=== PATIENT | male | born 1950 | race Two or more races ===

== ENCOUNTER 2017-03-26 16:20 | Inpatient (IN) | payer MEDICARE, MEDICAID ==
[~2017-03-26] VITALS: Ht 162.6 cm; Wt 74.9 kg
[2017-03-26] MEDS ORDERED: SODIUM CHLORIDE 0.9% 500 ML IV ONE (16:48)
[2017-03-26] MEDS ORDERED: ONDANSETRON HCL 4MG/2ML VIAL IV STA (16:48)
[2017-03-26 17:14] LABS: HEMATOCRIT. 34.6 % (42.0-52.0); HEMOGLOBIN. 11.6 g/dL (14.0-18.0); MEAN CORPUSCULAR VOLUME 98.7 fL (80.0-94.0); MEAN PLATELET VOLUME 8.8 fl (7.4-10.4); PLATELET 236 x1000/uL (130-400); RED BLOOD CELL COUNT 3.51 mill/uL (4.7-6.1); RED CELL DISTRIBUTION WIDTH 17.2 % (11.6-14.6)
[2017-03-26 17:21] LABS: CHLORIDE 97 mEq/L (98-107); INR 1.5; PARTIAL THROMBOPLASTIN TIME 34.8 sec (23.4-31.0); PROTHROMBIN TIME 15.5 sec (9.4-11.6)
[2017-03-26 17:28] LABS: CARBON DIOXIDE 25 mEq/L (21-32); CREATINE KINASE 57 IU/L (39-308); ETHANOL BLOOD < 10 mg/dL
[2017-03-26 17:31] LABS: TROPONIN I 0.19 ng/mL (0.00-0.04)
[2017-03-26 18:20] LABS: PLATELET ESTIMATE NORMAL
[2017-03-26] MEDS ORDERED: METRONIDAZOLE 500 MG PREMIX 100 ML IV ONE (18:45)
[2017-03-26] MEDS ORDERED: PIPERACILLIN/TAZ 3.375G PREMIX 50 ML IV ONE (18:45)
[2017-03-26 22:30] VITALS: BP 123/40
[2017-03-26] MEDS ORDERED: DEXTROSE 50% WATER 50ML SYRINGE IV PRN (23:30)
[2017-03-26] MEDS ORDERED: IPRATROPIUM/ALBUTEROL 0.5-3(2.5)MG/3ML NEB INH PRN (23:30)
[2017-03-26] MEDS ORDERED: NA PHOS,M-B/NA PHOS,DI-BA ENEMA 118ML PR PRN (23:30)
[2017-03-26] MEDS ORDERED: MAGNESIUM/ALUMINUM HYDROXIDE/SIMETHICONE 30ML UDC PO PRN (23:30)
[2017-03-26] MEDS ORDERED: HYDROCODONE/ACETAMINOPHEN 5/325MG TABLET PO PRN (23:30)
[2017-03-26] MEDS ORDERED: ACETAMINOPHEN 325MG TABLET PO PRN (23:30)
[2017-03-26] MEDS ORDERED: DOCUSATE SODIUM 100MG CAPSULE PO PRN (23:30)
[2017-03-26] MEDS ORDERED: ACETAMINOPHEN 650MG SUPP PR PRN (23:30)
[2017-03-26] MEDS ORDERED: GUAIFENESIN 200MG/10ML SUGAR FREE UDC PO PRN (23:30)
[2017-03-26] MEDS ORDERED: DIPHENHYDRAMINE 50MG/ML VIAL IV PRN (23:30)
[2017-03-26] MEDS ORDERED: ENOXAPARIN 40MG/0.4ML SYR SUBCUT SCH (23:30)
[2017-03-26] MEDS ORDERED: ACETAMINOPHEN 650MG/20.3ML UDC GT PRN (23:30)
[2017-03-27] VITALS (45 sets, daily range): BP systolic 68–159; BP diastolic 21–87
[2017-03-27] MEDS: CEFTRIAXONE 1 G PREMIX 50 ML IV SCH (01:34)
[2017-03-27] MEDS ORDERED: VANCOMYCIN 750 MG PREMIX 150 ML IV SCH (02:00)
[2017-03-27] MEDS: SODIUM CHLORIDE 0.9% INJ 3ML FLUSH IVF SCH ×2 (05:01→21:37)
[2017-03-27 07:07] LABS: HEMATOCRIT. 28.9 % (42.0-52.0); HEMOGLOBIN. 9.7 g/dL (14.0-18.0); MEAN CORPUSCULAR HEMOGLOBIN 33.3 pg (28.0-32.0); MEAN CORPUSCULAR VOLUME 99.5 fL (80.0-94.0); MEAN PLATELET VOLUME 8.6 fl (7.4-10.4); PLATELET 182 x1000/uL (130-400); RED BLOOD CELL COUNT 2.91 mill/uL (4.7-6.1)
[2017-03-27 07:46] LABS: CHLORIDE 102 mEq/L (98-107)
[2017-03-27] MEDS: INSULIN LISPRO 100 UNITS/ML SUBCUT SCH ×4 (08:00→21:36)
[2017-03-27] MEDS: BLOOD SUGAR DIAGNOSTIC STRIP TEST SCH ×4 (08:00→20:51)
[2017-03-27] MEDS ORDERED: GLIP10TA10 PO (08:12)
[2017-03-27] MEDS ORDERED: CINA30 PO (08:12)
[2017-03-27] MEDS ORDERED: LEVO500T89 PO (08:12)
[2017-03-27] MEDS ORDERED: LACT10SO6 MT (08:12)
[2017-03-27] MEDS ORDERED: LEVO25TA7 PO (08:12)
[2017-03-27] MEDS ORDERED: ASPI-1159 PO (08:12)
[2017-03-27] MEDS ORDERED: CLOP75TA33 PO (08:12)
[2017-03-27 08:28] LABS: CARBON DIOXIDE 19 mEq/L (21-32); HDL CHOLESTEROL 7 mg/dL (40-59); LDL CHOLESTEROL 52 mg/dL (5-100)
[2017-03-27] MEDS ORDERED: SODIUM CHLORIDE 0.9% 1000ML BAG (SEPSIS BOLUS) IV ONE (08:30)
[2017-03-27] MEDS: ENOXAPARIN 30MG/0.3ML SYR SUBCUT SCH (08:33)
[2017-03-27] MEDS ORDERED: ALBUMIN HUMAN 25GM/100ML (25%) IV NR (09:30)
[2017-03-27 09:31] LABS: T4 FREE 0.92 ng/dL (0.76-1.46)
[2017-03-27] MEDS ORDERED: SODIUM CHLORIDE 0.9% 100 ML IV ONE (09:32)
[2017-03-27] MEDS ORDERED: VANCOMYCIN 750 MG PREMIX 150 ML IV NR (10:00)
[2017-03-27 10:31] LABS: HEPATITIS B SURFACE ANTIGEN NEGATIVE
[2017-03-27 10:59] LABS: HEPATITIS B CORE AB IGM NEGATIVE
[2017-03-27 11:00] LABS: HEPATITIS A AB IGM NEGATIVE (NEGATIVE)
[2017-03-27] MEDS: METRONIDAZOLE 500 MG PREMIX 100 ML IV SCH ×2 (12:16→17:41)
[2017-03-27] MEDS: PHENYLEPHRINE 10 MG in DEXT 5% WATER 249 ML IV PRN ×2 (15:39→16:55)
[2017-03-27 15:58] LABS: D-DIMER 3.3 mg/L FEU (<0.50); INR 1.6; PROTHROMBIN TIME 16.7 sec (9.4-11.6)
[2017-03-27 16:11] LABS: CREATINE KINASE MB FRACTION 1.5 ng/mL (0.5-3.6); TROPONIN I 0.22 ng/mL (0.00-0.04)
[2017-03-27] MEDS ORDERED: EPOETIN ALFA 4000UNITS/ML VIAL SUBCUT SCH (21:00)
[2017-03-27] MEDS: EPOETIN ALFA 10000UNITS/ML VIAL SUBCUT SCH (21:36)
[2017-03-27 23:56] LABS: TROPONIN I 0.26 ng/mL (0.00-0.04)
[2017-03-27 23:57] LABS: CREATINE KINASE MB FRACTION 1.7 ng/mL (0.5-3.6)
[2017-03-28] VITALS (118 sets, daily range): BP systolic 55–167; BP diastolic 18–115
[2017-03-28] MEDS: CEFTRIAXONE 1 G PREMIX 50 ML IV SCH (00:48)
[2017-03-28] MEDS: PHENYLEPHRINE 10 MG in DEXT 5% WATER 249 ML IV PRN ×3 (02:00→14:50)
[2017-03-28] MEDS: METRONIDAZOLE 500 MG PREMIX 100 ML IV SCH ×3 (02:00→17:16)
[2017-03-28] MEDS: BLOOD SUGAR DIAGNOSTIC STRIP TEST SCH ×4 (06:00→20:59)
[2017-03-28] MEDS: SODIUM CHLORIDE 0.9% INJ 3ML FLUSH IVF SCH ×3 (06:01→20:59)
[2017-03-28] MEDS: INSULIN LISPRO 100 UNITS/ML SUBCUT SCH ×4 (06:01→20:58)
[2017-03-28] MEDS: ONDANSETRON HCL 4MG/2ML VIAL IV PRN (08:48)
[2017-03-28] MEDS: FOLIC ACID/VITAMIN B COMP W-C TABLET PO SCH (08:48)
[2017-03-28] MEDS: ENOXAPARIN 30MG/0.3ML SYR SUBCUT SCH (08:49)
[2017-03-28 10:35] LABS: HEMATOCRIT. 29.2 % (42.0-52.0); HEMOGLOBIN. 9.8 g/dL (14.0-18.0); MEAN CORPUSCULAR VOLUME 98.5 fL (80.0-94.0); MEAN PLATELET VOLUME 8.2 fl (7.4-10.4); PLATELET 183 x1000/uL (130-400); RED BLOOD CELL COUNT 2.96 mill/uL (4.7-6.1); RED CELL DISTRIBUTION WIDTH 17.7 % (11.6-14.6)
[2017-03-28 10:56] LABS: AMMONIA < 10 uMol/L (<32)
[2017-03-28 11:00] LABS: CARBON DIOXIDE 20 mEq/L (21-32); CHLORIDE 100 mEq/L (98-107); CREATINE KINASE 25 IU/L (39-308); CREATINE KINASE MB FRACTION 1.9 ng/mL (0.5-3.6); PHOSPHORUS 7.6 mg/dL (2.5-4.9); TROPONIN I 0.26 ng/mL (0.00-0.04)
[2017-03-28 11:01] LABS: PLATELET ESTIMATE NORMAL
[2017-03-28 13:07] LABS: PLATELET ESTIMATE NORMAL
[2017-03-28] MEDS ORDERED: PHENYLEPHRINE 20 MG in DEXT 5% WATER 498 ML IV PRN (15:45)
[2017-03-28] MEDS: PHENYLEPHRINE 20 MG in DEXT 5% WATER 498 ML IV PRN (17:16)
[2017-03-29] VITALS (98 sets, daily range): BP systolic 32–151; BP diastolic 14–113
[2017-03-29] MEDS: CEFTRIAXONE 1 G PREMIX 50 ML IV SCH (00:05)
[2017-03-29] MEDS: PHENYLEPHRINE 20 MG in DEXT 5% WATER 498 ML IV PRN ×3 (00:05→22:27)
[2017-03-29] MEDS: METRONIDAZOLE 500 MG PREMIX 100 ML IV SCH ×3 (01:39→17:49)
[2017-03-29 05:45] LABS: BASOPHILS % 0.4 % (0.0-2.0); EOSINOPHILS % 1.4 % (0.0-5.0); LYMPHOCYTES % 7.5 % (20.0-50.0); MEAN CORPUSCULAR HEMOGLOBIN 33.2 pg (28.0-32.0); MEAN PLATELET VOLUME 8.4 fl (7.4-10.4); MONOCYTES % 9.6 % (2.0-8.0); NEUTROPHILS % 81.1 % (40.0-76.0); PLATELET 166 x1000/uL (130-400); RED CELL DISTRIBUTION WIDTH 18.3 % (11.6-14.6)
[2017-03-29] MEDS: SODIUM CHLORIDE 0.9% INJ 3ML FLUSH IVF SCH ×3 (06:05→21:15)
[2017-03-29 06:15] LABS: CARBON DIOXIDE 20 mEq/L (21-32); CHLORIDE 98 mEq/L (98-107)
[2017-03-29] MEDS: INSULIN LISPRO 100 UNITS/ML SUBCUT SCH ×4 (06:41→21:18)
[2017-03-29] MEDS: BLOOD SUGAR DIAGNOSTIC STRIP TEST SCH ×4 (06:41→21:15)
[2017-03-29] MEDS: FOLIC ACID/VITAMIN B COMP W-C TABLET PO SCH (08:11)
[2017-03-29] MEDS: ENOXAPARIN 30MG/0.3ML SYR SUBCUT SCH (08:11)
[2017-03-30] VITALS (87 sets, daily range): BP systolic 45–149; BP diastolic 17–74
[2017-03-30] MEDS: CEFTRIAXONE 1 G PREMIX 50 ML IV SCH (00:36)
[2017-03-30] MEDS ORDERED: PHENYLEPHRINE 40 MG in DEXT 5% WATER 500 ML IV PRN (01:00)
[2017-03-30] MEDS: METRONIDAZOLE 500 MG PREMIX 100 ML IV SCH ×3 (02:36→18:13)
[2017-03-30 05:17] LABS: BASOPHILS % 0.3 % (0.0-2.0); EOSINOPHILS % 3.7 % (0.0-5.0); HEMATOCRIT. 28.5 % (42.0-52.0); HEMOGLOBIN. 9.6 g/dL (14.0-18.0); LYMPHOCYTES % 9.1 % (20.0-50.0); MEAN CORPUSCULAR HEMOGLOBIN 33.2 pg (28.0-32.0); MEAN CORPUSCULAR VOLUME 98.8 fL (80.0-94.0); MEAN PLATELET VOLUME 8.4 fl (7.4-10.4); MONOCYTES % 10.5 % (2.0-8.0); NEUTROPHILS % 76.4 % (40.0-76.0); PLATELET 184 x1000/uL (130-400); RED BLOOD CELL COUNT 2.89 mill/uL (4.7-6.1); RED CELL DISTRIBUTION WIDTH 18.1 % (11.6-14.6)
[2017-03-30 05:34] LABS: INR 1.7; PARTIAL THROMBOPLASTIN TIME 54.2 sec (23.4-31.0); PROTHROMBIN TIME 17.5 sec (9.4-11.6)
[2017-03-30] MEDS: SODIUM CHLORIDE 0.9% INJ 3ML FLUSH IVF SCH ×3 (06:21→21:03)
[2017-03-30] MEDS: BLOOD SUGAR DIAGNOSTIC STRIP TEST SCH ×4 (06:30→20:47)
[2017-03-30] MEDS: INSULIN LISPRO 100 UNITS/ML SUBCUT SCH ×4 (06:35→21:03)
[2017-03-30] MEDS: ENOXAPARIN 30MG/0.3ML SYR SUBCUT SCH (09:00)
[2017-03-30] MEDS ORDERED: SODIUM BICARBONATE 4% (2.4MEQ) 5ML VIAL IV ONE (09:13)
[2017-03-30] MEDS: FOLIC ACID/VITAMIN B COMP W-C TABLET PO SCH (10:08)
[2017-03-30 11:14] LABS: AMMONIA < 10 uMol/L (<32)
[2017-03-30] MEDS: VANCOMYCIN 1 G PREMIX 200 ML IV SCH ×2 (12:00→16:34)
[2017-03-30] MEDS ORDERED: MIDODRINE HCL 2.5MG TABLET PO SCH (20:00)
[2017-03-30] MEDS: EPOETIN ALFA 10000UNITS/ML VIAL SUBCUT SCH (20:48)
[2017-03-30] MEDS: MIDODRINE HCL 2.5MG TABLET PO SCH (21:54)
[2017-03-30] MEDS: PHENYLEPHRINE 40 MG in DEXT 5% WATER 500 ML IV PRN (21:55)
[2017-03-31] VITALS (105 sets, daily range): BP systolic 54–145; BP diastolic 19–100
[2017-03-31] MEDS: METRONIDAZOLE 500 MG PREMIX 100 ML IV SCH ×3 (01:24→17:33)
[2017-03-31] MEDS: CEFTRIAXONE 1 G PREMIX 50 ML IV SCH (01:24)
[2017-03-31 05:49] LABS: HEMATOCRIT. 28.7 % (42.0-52.0); HEMOGLOBIN. 9.6 g/dL (14.0-18.0); MEAN CORPUSCULAR HEMOGLOBIN 33.3 pg (28.0-32.0); MEAN CORPUSCULAR VOLUME 99.3 fL (80.0-94.0); MEAN PLATELET VOLUME 8.2 fl (7.4-10.4); PLATELET 187 x1000/uL (130-400); RED BLOOD CELL COUNT 2.89 mill/uL (4.7-6.1); RED CELL DISTRIBUTION WIDTH 18.9 % (11.6-14.6)
[2017-03-31] MEDS: SODIUM CHLORIDE 0.9% INJ 3ML FLUSH IVF SCH ×3 (06:12→21:02)
[2017-03-31] MEDS: BLOOD SUGAR DIAGNOSTIC STRIP TEST SCH ×4 (06:39→20:55)
[2017-03-31] MEDS: INSULIN LISPRO 100 UNITS/ML SUBCUT SCH ×4 (06:40→21:02)
[2017-03-31] MEDS: FOLIC ACID/VITAMIN B COMP W-C TABLET PO SCH (08:15)
[2017-03-31] MEDS: MIDODRINE HCL 2.5MG TABLET PO SCH ×3 (08:15→17:32)
[2017-03-31] MEDS: ENOXAPARIN 30MG/0.3ML SYR SUBCUT SCH (08:16)
[2017-03-31 16:56] LABS: PLATELET ESTIMATE NORMAL
[2017-04-01] VITALS (95 sets, daily range): BP systolic 67–134; BP diastolic 14–79
[2017-04-01] MEDS: CEFTRIAXONE 1 G PREMIX 50 ML IV SCH (00:37)
[2017-04-01] MEDS: METRONIDAZOLE 500 MG PREMIX 100 ML IV SCH ×3 (02:01→17:32)
[2017-04-01] MEDS: SODIUM CHLORIDE 0.9% INJ 3ML FLUSH IVF SCH ×3 (06:00→21:48)
[2017-04-01 06:01] LABS: HEMATOCRIT. 27.8 % (42.0-52.0); HEMOGLOBIN. 9.4 g/dL (14.0-18.0); MEAN CORPUSCULAR HEMOGLOBIN 33.6 pg (28.0-32.0); MEAN CORPUSCULAR VOLUME 99.7 fL (80.0-94.0); MEAN PLATELET VOLUME 8.3 fl (7.4-10.4); PLATELET 202 x1000/uL (130-400); RED BLOOD CELL COUNT 2.78 mill/uL (4.7-6.1); RED CELL DISTRIBUTION WIDTH 18.5 % (11.6-14.6)
[2017-04-01] MEDS: BLOOD SUGAR DIAGNOSTIC STRIP TEST SCH ×4 (06:09→21:33)
[2017-04-01 07:08] LABS: AMMONIA 43 uMol/L (<32)
[2017-04-01 07:13] LABS: CARBON DIOXIDE 23 mEq/L (21-32); CHLORIDE 102 mEq/L (98-107)
[2017-04-01] MEDS ORDERED: MIDODRINE HCL 2.5MG TABLET PO SCH ×2 (09:00→13:00)
[2017-04-01] MEDS: ENOXAPARIN 30MG/0.3ML SYR SUBCUT SCH (09:37)
[2017-04-01] MEDS: FOLIC ACID/VITAMIN B COMP W-C TABLET PO SCH (09:48)
[2017-04-01] MEDS: INSULIN LISPRO 100 UNITS/ML SUBCUT SCH ×4 (09:50→21:47)
[2017-04-01] MEDS: MIDODRINE HCL 5MG TABLET PO SCH ×2 (12:43→18:12)
[2017-04-01] MEDS: PHENYLEPHRINE 40 MG in DEXT 5% WATER 500 ML IV PRN (13:37)
[2017-04-01 13:51] LABS: NUCLEATED RED BLOOD CELLS 3 /100 WBC; PLATELET ESTIMATE NORMAL
[2017-04-01] MEDS ORDERED: EPOETIN ALFA 4000UNITS/ML VIAL SUBCUT SCH (21:00)
[2017-04-02] VITALS (98 sets, daily range): BP systolic 48–142; BP diastolic 19–86
[2017-04-02] MEDS: CEFTRIAXONE 1 G PREMIX 50 ML IV SCH (01:52)
[2017-04-02] MEDS: PHENYLEPHRINE 40 MG in DEXT 5% WATER 500 ML IV PRN (01:59)
[2017-04-02] MEDS: METRONIDAZOLE 500 MG PREMIX 100 ML IV SCH ×3 (02:46→17:31)
[2017-04-02] MEDS: ONDANSETRON HCL 4MG/2ML VIAL IV PRN (04:46)
[2017-04-02 05:33] LABS: BASOPHILS % 0.6 % (0.0-2.0); EOSINOPHILS % 1.2 % (0.0-5.0); HEMATOCRIT. 27.6 % (42.0-52.0); LYMPHOCYTES % 9.2 % (20.0-50.0); MEAN CORPUSCULAR HEMOGLOBIN 32.8 pg (28.0-32.0); MEAN CORPUSCULAR VOLUME 100.4 fL (80.0-94.0); MONOCYTES % 10.2 % (2.0-8.0); NEUTROPHILS % 78.8 % (40.0-76.0); RED BLOOD CELL COUNT 2.75 mill/uL (4.7-6.1)
[2017-04-02 05:45] LABS: AMMONIA < 25 uMol/L (<32)
[2017-04-02 05:49] LABS: PHOSPHORUS 4.8 mg/dL (2.5-4.9)
[2017-04-02] MEDS: SODIUM CHLORIDE 0.9% INJ 3ML FLUSH IVF SCH ×2 (07:03→21:56)
[2017-04-02] MEDS: BLOOD SUGAR DIAGNOSTIC STRIP TEST SCH ×4 (07:18→21:45)
[2017-04-02] MEDS: FOLIC ACID/VITAMIN B COMP W-C TABLET PO SCH (08:13)
[2017-04-02] MEDS: INSULIN LISPRO 100 UNITS/ML SUBCUT SCH ×4 (08:14→21:55)
[2017-04-02] MEDS: MIDODRINE HCL 5MG TABLET PO SCH ×3 (08:43→17:38)
[2017-04-02] MEDS: ENOXAPARIN 30MG/0.3ML SYR SUBCUT SCH (08:44)
[2017-04-02 09:01] LABS: MEAN PLATELET VOLUME 8.8 fl (7.4-10.4); PLATELET 189 x1000/uL (130-400)
[2017-04-03] VITALS (98 sets, daily range): BP systolic 63–128; BP diastolic 18–99
[2017-04-03] MEDS: CEFTRIAXONE 1 G PREMIX 50 ML IV SCH (01:40)
[2017-04-03] MEDS: METRONIDAZOLE 500 MG PREMIX 100 ML IV SCH ×3 (02:14→18:15)
[2017-04-03 06:08] LABS: HEMATOCRIT. 28.7 % (42.0-52.0); HEMOGLOBIN. 9.3 g/dL (14.0-18.0); MEAN CORPUSCULAR HEMOGLOBIN 32.6 pg (28.0-32.0); MEAN CORPUSCULAR VOLUME 100.6 fL (80.0-94.0); PLATELET 157 x1000/uL (130-400); RED BLOOD CELL COUNT 2.86 mill/uL (4.7-6.1); RED CELL DISTRIBUTION WIDTH 19.1 % (11.6-14.6)
[2017-04-03] MEDS: BLOOD SUGAR DIAGNOSTIC STRIP TEST SCH ×4 (06:43→21:34)
[2017-04-03] MEDS: SODIUM CHLORIDE 0.9% INJ 3ML FLUSH IVF SCH ×3 (06:44→21:39)
[2017-04-03] MEDS: INSULIN LISPRO 100 UNITS/ML SUBCUT SCH ×4 (07:09→21:38)
[2017-04-03 08:14] LABS: AMMONIA 71 uMol/L (<32)
[2017-04-03] MEDS: FOLIC ACID/VITAMIN B COMP W-C TABLET PO SCH (08:18)
[2017-04-03] MEDS: ENOXAPARIN 30MG/0.3ML SYR SUBCUT SCH (08:18)
[2017-04-03] MEDS: MIDODRINE HCL 5MG TABLET PO SCH ×3 (08:19→16:04)
[2017-04-03 09:32] LABS: PLATELET ESTIMATE NORMAL
[2017-04-03] MEDS ORDERED: VANCOMYCIN 1 G PREMIX 200 ML IV SCH (17:00)
[2017-04-04] VITALS (48 sets, daily range): BP systolic 55–118; BP diastolic 17–96
[2017-04-04 05:04] LABS: HEMATOCRIT 29.4 % (42.0-52.0); HEMOGLOBIN 9.5 g/dL (14.0-18.0); MEAN CORPUSCULAR HEMOGLOBIN 33.1 pg (28.0-32.0); MEAN CORPUSCULAR VOLUME 102.3 fL (80.0-94.0); PLATELET 193 x1000/uL (130-400); RED BLOOD CELL COUNT 2.87 mill/uL (4.7-6.1)
[2017-04-04] MEDS: SODIUM CHLORIDE 0.9% INJ 3ML FLUSH IVF SCH ×3 (06:25→22:09)
[2017-04-04] MEDS: BLOOD SUGAR DIAGNOSTIC STRIP TEST SCH ×4 (06:25→21:00)
[2017-04-04] MEDS: INSULIN LISPRO 100 UNITS/ML SUBCUT SCH ×4 (06:27→21:18)
[2017-04-04 07:26] LABS: PHOSPHORUS 5.3 mg/dL (2.5-4.9)
[2017-04-04 07:37] LABS: AMMONIA 35 uMol/L (<32)
[2017-04-04] MEDS: FOLIC ACID/VITAMIN B COMP W-C TABLET PO SCH (08:20)
[2017-04-04] MEDS: MIDODRINE HCL 5MG TABLET PO SCH ×3 (08:21→22:09)
[2017-04-04] MEDS: ENOXAPARIN 30MG/0.3ML SYR SUBCUT SCH (08:21)
[2017-04-05] VITALS (56 sets, daily range): BP systolic 50–124; BP diastolic 20–110
[2017-04-05] MEDS: SODIUM CHLORIDE 0.9% INJ 3ML FLUSH IVF SCH ×2 (06:18→14:00)
[2017-04-05] MEDS: MIDODRINE HCL 5MG TABLET PO SCH ×2 (06:27→13:53)
[2017-04-05] MEDS: BLOOD SUGAR DIAGNOSTIC STRIP TEST SCH ×4 (06:42→21:00)
[2017-04-05 07:11] LABS: HEMATOCRIT 31.3 % (42.0-52.0); MEAN CORPUSCULAR HEMOGLOBIN 33.3 pg (28.0-32.0); MEAN CORPUSCULAR VOLUME 103.6 fL (80.0-94.0); PLATELET 175 x1000/uL (130-400); RED BLOOD CELL COUNT 3.02 mill/uL (4.7-6.1); RED CELL DISTRIBUTION WIDTH 21.5 % (11.6-14.6)
[2017-04-05 08:18] LABS: AMMONIA 58 uMol/L (<32)
[2017-04-05 08:24] LABS: BG CARBOXYHEMOGLOBIN 0.8 % (0.5-1.5); BG DEOXYHEMOGLOBIN 5.2 % (0.0-5.0); BG FRACTION INSPIRED OXYGEN 28; BG HCO3 ACT 19.4 mmol/L (22.0-26.0); BG METHEMOGLOBIN 0.1 % (0.0-1.5); BG OXYGEN SATURATION 94.8 % (92.0-98.5); BG OXYHEMOGLOBIN 93.9 % (94.0-97.0); BG PCO2 33.6 mmHg (35.0-45.0); BG PH 7.379 (7.350-7.450); BG PO2 82.1 mmHg (75.0-100.0); BG SAMPLE SITE RIGHT RADIAL; BG TOTAL HEMOGLOBIN 10.3 g/dL (12.0-18.0); BG VENT MODE NASAL CANNULA
[2017-04-05] MEDS: ENOXAPARIN 30MG/0.3ML SYR SUBCUT SCH (08:42)
[2017-04-05] MEDS: INSULIN LISPRO 100 UNITS/ML SUBCUT SCH ×4 (08:43→21:00)
[2017-04-05] MEDS: FOLIC ACID/VITAMIN B COMP W-C TABLET PO SCH (08:44)
[2017-04-05] MEDS ORDERED: PHENYLEPHRINE 80 MG in DEXT 5% WATER 492 ML IV PRN (09:45)
[2017-04-05] MEDS ORDERED: PHENYLEPHRINE 40 MG in DEXT 5% WATER 246 ML IV PRN (09:45)
[2017-04-05 11:41] LABS: CREATINE KINASE MB FRACTION 3.5 ng/mL (0.5-3.6)
[2017-04-05 11:45] LABS: TROPONIN I 0.42 ng/mL (0.00-0.04)
[2017-04-05] MEDS ORDERED: MORPHINE SULFATE 2 MG/ML CPJ (NOT FOR IM USE) IV PRN (19:45)
[2017-04-05] MEDS ORDERED: LACTULOSE 20G/30ML UDC PO PRN (21:00)
[2017-04-05] MEDS ORDERED: RIFAXIMIN 550 MG TABLET PO SCH (21:00)
[2017-04-06] VITALS (7 sets, daily range): BP systolic 53–63; BP diastolic 24–29
[2017-04-06] MEDS ORDERED: MIDODRINE HCL 2.5MG TABLET PO SCH (06:00)
[2017-04-06] MEDS ORDERED: FLUDROCORTISONE ACETATE 0.1MG TABLET PO SCH (09:00)
== END 2017-04-06 02:05 | disposition expired | DRG 871 ==
LOC: ER 16:20 → ENRESERV 18:55 → 5EST 18:56 → EDBEDREQ 19:04 → MICUNO 03-27 15:45 → MICUSO 03-28 07:30 → 3WST 04-04 17:45 → CVICU 04-05 09:05
PROVIDERS: ADMIT Family Medicine; ATTEND Family Medicine
PROC: 05HY33Z Insertion of Infusion Device into Upper Vein, Percutaneous Approach (ICD-10-PCS; 2017-03-28)
PROC: B54MZZA Ultrasonography of Right Upper Extremity Veins, Guidance (ICD-10-PCS; 2017-03-28)
PROC: 5A1D70Z Performance of Urinary Filtration, Intermittent, Less than 6 Hours Per Day (ICD-10-PCS; 2017-03-28)
PROC: 0W9G3ZZ Drainage of Peritoneal Cavity, Percutaneous Approach (ICD-10-PCS; principal; 2017-03-30)
PROC: 5A1D70Z Performance of Urinary Filtration, Intermittent, Less than 6 Hours Per Day (ICD-10-PCS; 2017-03-30)
PROC: 5A1D70Z Performance of Urinary Filtration, Intermittent, Less than 6 Hours Per Day (ICD-10-PCS; 2017-03-31)
PROC: 5A1D70Z Performance of Urinary Filtration, Intermittent, Less than 6 Hours Per Day (ICD-10-PCS; 2017-04-02)
PROC: 5A1D70Z Performance of Urinary Filtration, Intermittent, Less than 6 Hours Per Day (ICD-10-PCS; 2017-04-05)
DX: A41.9 Sepsis, unspecified organism (principal); R65.21 Severe sepsis with septic shock; E43 Unspecified severe protein-calorie malnutrition; D68.4 Acquired coagulation factor deficiency; E11.22 Type 2 diabetes mellitus with diabetic chronic kidney disease; I12.0 Hypertensive chronic kidney disease with stage 5 chronic kidney disease or end stage renal disease; N18.6 End stage renal disease; N25.81 Secondary hyperparathyroidism of renal origin; Z66 Do not resuscitate; D64.9 Anemia, unspecified; Z51.5 Encounter for palliative care; E03.9 Hypothyroidism, unspecified; I44.0 Atrioventricular block, first degree; K80.20 Calculus of gallbladder without cholecystitis without obstruction; E78.5 Hyperlipidemia, unspecified; N40.0 Benign prostatic hyperplasia without lower urinary tract symptoms; F10.20 Alcohol dependence, uncomplicated; K70.31 Alcoholic cirrhosis of liver with ascites; Z99.2 Dependence on renal dialysis; Z89.429 Acquired absence of other toe(s), unspecified side
CPT/HCPCS: 36415; 36569; 36600; 49083; 71010; 74176; 76700; 76705; 76937; 80048; 80053; 80061; 80076; 80202; 82040; 82105; 82140; 82248; 82375; 82533; 82550; 82553; 82805; 82962; 83036; 83605; 83690; 83735; 83880; 84100; 84439; 84443; 84484; 85025; 85027; 85379; 85610; 85730; 86705; 86709; 86803; 87015; 87040; 87045; 87070; 87205; 87340; 87427; 87449; 87493; 88108; 88312; 89050; 93005; 93306; 94640; 96361; 96365; 96366; 96368; 96375; 97110; 97162; 97166; 97530; 99285; C1725; G0482; J0696; J0885; J1650; J1815; J2270; J2370; J2405; J2543; J3370; J3490; J7030; J7040; J7060; J7620; P9047; A4315